=== PATIENT | male | born 1950 | race Asian ===

== ENCOUNTER 2017-04-21 09:43 | Emergency (ER) | payer MEDICARE ==
[~2017-04-21] VITALS: Ht 167.6 cm; Wt 74.2 kg
[~2017-04-21 09:43] MED LIST: ASPI-621 PO; ATEN25TA PO; HYDR12.58 PO; LEVO25TA4 PO; LISI-170 PO; LISI5TAB7 PO
[2017-04-21 09:51] VITALS: BP 202/98
== END 2017-04-21 12:20 | disposition home or self-care (01) ==
LOC: ED 12:00
DX: R42 Dizziness and giddiness (principal); J01.10 Acute frontal sinusitis, unspecified; J01.00 Acute maxillary sinusitis, unspecified; I10 Essential (primary) hypertension
CPT/HCPCS: 36415; 80047; 93005; 99285

== ENCOUNTER 2017-07-10 13:34 | Inpatient (IN) | payer MEDICARE ==
[~2017-07-10] VITALS: Ht 170.2 cm; Wt 71.8 kg
[~2017-07-10 13:34] MED LIST changes: +LISI-167 PO
[2017-07-10] MEDS ORDERED: SODIUM CHLORIDE FLUSH 10ML SYR IVF ONE (15:00)
[2017-07-10 15:06] LABS: MEAN CORPUSCULAR HEMOGLOBIN 31.2 pg (27.5-34.5); MEAN CORPUSCULAR VOLUME 91.7 fL (81-97)
[2017-07-10 15:07] LABS: BASOPHILS # (AUTO) 0.03 x10^3/uL (0-0.1); BASOPHILS % (AUTO) 0 % (0-1); EOSINOPHILS # (AUTO) 0.02 x10^3/uL (0-0.4); EOSINOPHILS % (AUTO) 0 % (1-7); LYMPHOCYTES # (AUTO) 1.39 x10^3/uL (1-3.4); LYMPHOCYTES % (AUTO) 16 % (22-44); MD NO; MEAN PLATELET VOLUME 7.4 fL (7.4-10.4); MONOCYTES # (AUTO) 0.69 x10^3/uL (0.2-0.8); MONOCYTES % (AUTO) 8 % (2-9); NEUTROPHILS # (AUTO) 6.84 x10^3/uL (1.8-6.8); NEUTROPHILS % (AUTO) 76 % (42-75); PLATELET COUNT 331 x10^3/uL (130-400); RED CELL DISTRIBUTION WIDTH 13.9 % (9.4-14.8)
[2017-07-10 15:19] LABS: ALANINE AMINOTRANSFERASE 31 U/L (12-78); ALBUMIN 3.6 g/dL (3.4-5.0); ANION GAP 6 mmol/L (5-15); CALCIUM 8.4 mg/dL (8.5-10.1); CHLORIDE 96 mmol/L (98-107); CREATININE 1.03 mg/dL (0.7-1.3)
[2017-07-10 15:23] LABS: ALKALINE PHOSPHATASE 48 U/L (45-117); BILIRUBIN,TOTAL 0.5 mg/dL (0.2-1.0); TOTAL PROTEIN 7.8 g/dL (6.4-8.2); TROPONIN I < 0.015 ng/mL (0.000-0.045)
[2017-07-10] MEDS ORDERED: CEFAZOLIN PMX 1GM/50ML 50 ML IVPB ONE (17:30)
[2017-07-10] MEDS ORDERED: ZOLPIDEM 5MG TABLET PO PRN (17:30)
[2017-07-10 17:49] LABS: THYROID STIMULATING HORMONE 1.12 mIU/L (0.358-3.740)
[2017-07-10] MEDS: LISINOPRIL 20 MG TABLET PO SCH ×2 (21:00→21:42)
[2017-07-10] MEDS: SODIUM CHLORIDE FLUSH 10ML SYR IVF SCH (21:00)
[2017-07-10 21:45] VITALS: BP 142/85
[2017-07-10] MEDS: SODIUM CHLORIDE 0.9% 1,000 ML IV SCH (22:20)
[2017-07-10] MEDS ORDERED: LEVO50TA5 PO (22:26)
[2017-07-11 03:28] VITALS: BP 147/84
[2017-07-11] MEDS: LEVOTHYROXINE 50 MCG TABLET PO SCH (05:26)
[2017-07-11 05:39] LABS: ANION GAP 6 mmol/L (5-15); CALCIUM 8.2 mg/dL (8.5-10.1); CHLORIDE 99 mmol/L (98-107); CREATININE 0.96 mg/dL (0.7-1.3)
[2017-07-11] MEDS: SODIUM CHLORIDE 0.9% 1,000 ML IV SCH ×3 (06:38→16:00)
[2017-07-11 08:00] VITALS: BP 154/86
[2017-07-11] MEDS: LISINOPRIL 20 MG TABLET PO SCH ×2 (09:18→21:04)
[2017-07-11] MEDS: SODIUM CHLORIDE FLUSH 10ML SYR IVF SCH ×2 (09:20→21:05)
[2017-07-11] MEDS ORDERED: MIDAZOLAM 1 MG/ML, 5ML ONE (11:42)
[2017-07-11] MEDS ORDERED: LIDOCAINE 2%, 20ML ONE (11:42)
[2017-07-11] MEDS ORDERED: FENTANYL PF 100 MCG/2ML ONE (11:42)
[2017-07-11] MEDS ORDERED: CEFAZOLIN 1,000 MG ONE (11:42)
[2017-07-11] MEDS ORDERED: CEFAZOLIN PMX 1GM/50ML 50 ML ONE (11:42)
[2017-07-11] MEDS ORDERED: DIPHENHYDRAMINE 50 MG/ML, 1ML ONE (12:06)
[2017-07-11] MEDS: ACETAMINOPHEN 325 MG TABLET PO PRN (15:49)
[2017-07-11 20:56] VITALS: BP 145/85
[2017-07-11] MEDS: CEFAZOLIN PMX 1GM/50ML 50 ML IVPB SCH (21:04)
[2017-07-12] MEDS: ACETAMINOPHEN 325 MG TABLET PO PRN (00:14)
[2017-07-12] MEDS: SODIUM CHLORIDE 0.9% 1,000 ML IV SCH ×3 (02:00→04:00)
[2017-07-12 03:42] VITALS: BP_SYST 134; BP_SYST 144; BP_DIAS 81; BP_DIAS 85
[2017-07-12] MEDS: CEFAZOLIN PMX 1GM/50ML 50 ML IVPB SCH (04:10)
[2017-07-12] MEDS: LEVOTHYROXINE 50 MCG TABLET PO SCH (04:10)
[2017-07-12] MEDS ORDERED: LISI-167 PO (08:17)
[2017-07-12] MEDS ORDERED: METO25TA35 PO (08:17)
[2017-07-12] MEDS ORDERED: ACET325T14 PO (08:17)
[2017-07-12] MEDS ORDERED: METOPROLOL TARTRATE 25 MG TABLET PO SCH (08:30)
[2017-07-12] MEDS: LISINOPRIL 20 MG TABLET PO SCH (08:42)
[2017-07-12] MEDS: SODIUM CHLORIDE FLUSH 10ML SYR IVF SCH (08:43)
[2017-07-12] MEDS ORDERED: PNEUMOCOCCAL 23 VACCINE IM-VACC ONE (11:00)
== END 2017-07-12 11:20 | disposition home or self-care (01) | DRG 243 ==
LOC: ED 14:39 → EDIP 17:05 → 5SO 18:25
PROVIDERS: ADMIT Internal Medicine Cardiovascular Disease; ATTEND Internal Medicine Cardiovascular Disease
PROC: 02H63JZ Insertion of Pacemaker Lead into Right Atrium, Percutaneous Approach (ICD-10-PCS; principal; 2017-07-11)
PROC: 0JH606Z Insertion of Pacemaker, Dual Chamber into Chest Subcutaneous Tissue and Fascia, Open Approach (ICD-10-PCS; 2017-07-11)
PROC: 02HK3JZ Insertion of Pacemaker Lead into Right Ventricle, Percutaneous Approach (ICD-10-PCS; 2017-07-11)
DX: I49.5 Sick sinus syndrome (principal); E87.1 Hypo-osmolality and hyponatremia; I48.92 Unspecified atrial flutter; I44.1 Atrioventricular block, second degree; E03.9 Hypothyroidism, unspecified; I10 Essential (primary) hypertension; R55 Syncope and collapse; M54.9 Dorsalgia, unspecified; Z87.891 Personal history of nicotine dependence
CPT/HCPCS: 33208; 36415; 71045; 80048; 80053; 83735; 84443; 84484; 85025; 93005; 93306; 99156; 99157; 99285; C1779; C1785; C1892; J0690; J2250; J3010; J3490; J1200; J7030

== ENCOUNTER 2017-07-15 09:13 | Emergency (ER) | payer MEDICARE ==
[~2017-07-15] VITALS: Ht 167.6 cm; Wt 72.6 kg
[~2017-07-15 09:13] MED LIST changes: +ACET325T14 PO; +LEVO50TA5 PO; +METO25TA35 PO
[2017-07-15 10:09] LABS: BASOPHILS # (AUTO) 0.01 x10^3/uL (0-0.1); BASOPHILS % (AUTO) 0 % (0-1); EOSINOPHILS # (AUTO) 0.02 x10^3/uL (0-0.4); EOSINOPHILS % (AUTO) 0 % (1-7); LYMPHOCYTES # (AUTO) 1.11 x10^3/uL (1-3.4); LYMPHOCYTES % (AUTO) 11 % (22-44); MD NO; MEAN CORPUSCULAR HEMOGLOBIN 31.4 pg (27.5-34.5); MEAN CORPUSCULAR HGB CONC 34.3 g/dL (33.2-36.2); MEAN CORPUSCULAR VOLUME 91.4 fL (81-97); MEAN PLATELET VOLUME 7.6 fL (7.4-10.4); MONOCYTES # (AUTO) 0.82 x10^3/uL (0.2-0.8); MONOCYTES % (AUTO) 8 % (2-9); NEUTROPHILS # (AUTO) 8.49 x10^3/uL (1.8-6.8); NEUTROPHILS % (AUTO) 81 % (42-75); PLATELET COUNT 296 x10^3/uL (130-400); RED BLOOD COUNT 4.91 x10^6/uL (4.38-5.82); RED CELL DISTRIBUTION WIDTH 14.1 % (9.4-14.8)
[2017-07-15 10:15] LABS: INTERNATIONAL NORMALIZED RATIO 0.96 (0.93-1.1)
[2017-07-15 10:18] LABS: ALBUMIN 3.4 g/dL (3.4-5.0); ANION GAP 8 mmol/L (5-15); CALCIUM 8.4 mg/dL (8.5-10.1); CHLORIDE 98 mmol/L (98-107)
[2017-07-15 10:22] LABS: TROPONIN I < 0.015 ng/mL (0.000-0.045)
[2017-07-15 11:33] VITALS: BP 166/94
== END 2017-07-15 11:35 | disposition home or self-care (01) ==
LOC: ED 11:30
DX: H93.11 Tinnitus, right ear (principal); R06.00 Dyspnea, unspecified; I10 Essential (primary) hypertension; Z95.0 Presence of cardiac pacemaker; R79.1 Abnormal coagulation profile
CPT/HCPCS: 36415; 71045; 80048; 82040; 84484; 85025; 85610; 85730; 93005; 99285

== ENCOUNTER 2017-08-02 13:21 | Inpatient (IN) | payer MEDICARE ==
[~2017-08-02] VITALS: Ht 170.2 cm; Wt 70.4 kg
[2017-08-02 14:50] LABS: BASOPHILS # (AUTO) 0.04 x10^3/uL (0-0.1); BASOPHILS % (AUTO) 0 % (0-1); EOSINOPHILS # (AUTO) 0.02 x10^3/uL (0-0.4); EOSINOPHILS % (AUTO) 0 % (1-7); LYMPHOCYTES # (AUTO) 1.96 x10^3/uL (1-3.4); LYMPHOCYTES % (AUTO) 18 % (22-44); MD NO; MEAN CORPUSCULAR HEMOGLOBIN 31.1 pg (27.5-34.5); MEAN CORPUSCULAR HGB CONC 34.2 g/dL (33.2-36.2); MEAN CORPUSCULAR VOLUME 91.1 fL (81-97); MEAN PLATELET VOLUME 7.3 fL (7.4-10.4); MONOCYTES # (AUTO) 1.21 x10^3/uL (0.2-0.8); MONOCYTES % (AUTO) 11 % (2-9); NEUTROPHILS # (AUTO) 7.44 x10^3/uL (1.8-6.8); NEUTROPHILS % (AUTO) 70 % (42-75); PLATELET COUNT 372 x10^3/uL (130-400); RED BLOOD COUNT 5.29 x10^6/uL (4.38-5.82); RED CELL DISTRIBUTION WIDTH 14.1 % (9.4-14.8)
[2017-08-02 15:00] LABS: ANION GAP 9 mmol/L (5-15); CALCIUM 8.9 mg/dL (8.5-10.1); CHLORIDE 85 mmol/L (98-107)
[2017-08-02 15:21] LABS: ALANINE AMINOTRANSFERASE 31 U/L (12-78); BILIRUBIN,TOTAL 0.6 mg/dL (0.2-1.0); CREATININE 1.44 mg/dL (0.7-1.3)
[2017-08-02 15:22] LABS: ALKALINE PHOSPHATASE 66 U/L (45-117); TOTAL PROTEIN 8.7 g/dL (6.4-8.2)
[2017-08-02] MEDS ORDERED: SODIUM CHLORIDE 0.9% 1,000 ML IV ONE (15:28)
[2017-08-02] MEDS ORDERED: SODIUM CHLORIDE 0.9% 1,000ML IVBOLUS ONE (15:30)
[2017-08-02] MEDS ORDERED: SODIUM CHLORIDE FLUSH 10ML SYR IVF ONE (15:30)
[2017-08-02] MEDS ORDERED: SODIUM CHLORIDE 0.9% 1,000 ML IV SCH (15:49)
[2017-08-02] MEDS ORDERED: LABETALOL 5MG/ML, 20ML IVPush PRN (16:00)
[2017-08-02] MEDS ORDERED: ONDANSETRON ODT 4 MG PO PRN (16:00)
[2017-08-02] MEDS ORDERED: ACETAMINOPHEN 325 MG TABLET PO PRN (16:00)
[2017-08-02] MEDS ORDERED: HYDR12.53 PO (16:01)
[2017-08-02] MEDS ORDERED: SULF1TAB23 PO (16:01)
[2017-08-02] MEDS ORDERED: CHLO25TA PO (16:13)
[2017-08-02 16:46] LABS: MICROSCOPIC AUTO
[2017-08-02 16:47] LABS: CULTURE INDICATED? NO
[2017-08-02 16:49] LABS: CHLORIDE,URINE RANDOM 91 mmol/L; POTASSIUM,URINE RANDOM 23 mmol/L; SODIUM,URINE RANDOM 91 mmol/L
[2017-08-02 17:03] LABS: CREATININE,URINE RANDOM 72.9 mg/dL
[2017-08-02] MEDS ORDERED: METOPROLOL TARTRATE 50 MG TABLET PO SCH (18:00)
[2017-08-02 18:17] VITALS: BP 133/81
[2017-08-02] MEDS: LISINOPRIL 10 MG TABLET PO SCH (19:45)
[2017-08-02] MEDS: SULFAMETH./TRIMETHOPRIM SS 400MG/80MG TABLET PO SCH (19:46)
[2017-08-02] MEDS: HEPARIN 5,000 UNITS/ML, 1ML SQ SCH (19:58)
[2017-08-02 20:05] VITALS: BP_SYST 130; BP_SYST 133; BP_DIAS 74; BP_DIAS 81
[2017-08-02] MEDS ORDERED: SULFAMETH./TRIMETHOPRIM DS 800MG/160MG TABLET PO SCH (21:00)
[2017-08-02] MEDS ORDERED: METOPROLOL TARTRATE 25 MG TABLET PO SCH (21:00)
[2017-08-03 01:15] VITALS: BP 123/70
[2017-08-03 01:17] VITALS: BP 123/70
[2017-08-03 04:21] LABS: BASOPHILS # (AUTO) 0.04 x10^3/uL (0-0.1); BASOPHILS % (AUTO) 0 % (0-1); EOSINOPHILS # (AUTO) 0.03 x10^3/uL (0-0.4); EOSINOPHILS % (AUTO) 0 % (1-7); LYMPHOCYTES # (AUTO) 1.85 x10^3/uL (1-3.4); LYMPHOCYTES % (AUTO) 18 % (22-44); MD NO; MEAN CORPUSCULAR HEMOGLOBIN 31.2 pg (27.5-34.5); MEAN CORPUSCULAR HGB CONC 34.1 g/dL (33.2-36.2); MEAN CORPUSCULAR VOLUME 91.5 fL (81-97); MEAN PLATELET VOLUME 7.4 fL (7.4-10.4); MONOCYTES # (AUTO) 1.12 x10^3/uL (0.2-0.8); MONOCYTES % (AUTO) 11 % (2-9); NEUTROPHILS # (AUTO) 7.08 x10^3/uL (1.8-6.8); NEUTROPHILS % (AUTO) 70 % (42-75); PLATELET COUNT 347 x10^3/uL (130-400); RED BLOOD COUNT 5.07 x10^6/uL (4.38-5.82); RED CELL DISTRIBUTION WIDTH 13.9 % (9.4-14.8)
[2017-08-03 04:32] LABS: ALBUMIN 3.5 g/dL (3.4-5.0); ANION GAP 10 mmol/L (5-15); CALCIUM 8.2 mg/dL (8.5-10.1); CHLORIDE 91 mmol/L (98-107)
[2017-08-03 04:36] LABS: ALANINE AMINOTRANSFERASE 30 U/L (12-78); ALKALINE PHOSPHATASE 57 U/L (45-117); BILIRUBIN,TOTAL 0.9 mg/dL (0.2-1.0); CHOL/HDL RATIO 3.6; CHOLESTEROL, TOTAL 171 mg/dL (140-239); CREATININE 1.22 mg/dL (0.7-1.3); HDL CHOL % 27 % (26-37); HDL CHOLESTEROL (DIRECT) 47 mg/dL (40-60); LDL CHOLESTEROL,CALCULATED 95 mg/dL (54-169); TOTAL PROTEIN 7.7 g/dL (6.4-8.2); TRIGLYCERIDES 144 mg/dL (50-200); VLDL CHOLESTEROL 29 mg/dL (0-25)
[2017-08-03] MEDS: HEPARIN 5,000 UNITS/ML, 1ML SQ SCH ×3 (05:00→22:54)
[2017-08-03] MEDS ORDERED: FUROSEMIDE 20 MG/2 ML IV ONE (08:00)
[2017-08-03] MEDS: LEVOTHYROXINE 50 MCG TABLET PO SCH (08:05)
[2017-08-03 08:46] VITALS: BP 144/76
[2017-08-03] MEDS: LISINOPRIL 10 MG TABLET PO SCH (09:22)
[2017-08-03] MEDS: SULFAMETH./TRIMETHOPRIM SS 400MG/80MG TABLET PO SCH ×2 (09:22→19:49)
[2017-08-03] MEDS: METOPROLOL TARTRATE 50 MG TABLET PO SCH ×2 (09:27→22:54)
[2017-08-03 14:36] VITALS: BP 109/68
[2017-08-03] MEDS ORDERED: SODIUM CHLORIDE 0.9% 1,000 ML IV SCH (15:49)
[2017-08-03 19:38] VITALS: BP 113/69
[2017-08-03 22:52] VITALS: BP 113/70
[2017-08-03] MEDS: LISINOPRIL 20 MG TABLET PO SCH (22:54)
[2017-08-04 03:36] VITALS: BP 113/66
[2017-08-04 04:24] VITALS: BP 128/80
[2017-08-04 04:31] LABS: BASOPHILS # (AUTO) 0.03 x10^3/uL (0-0.1); BASOPHILS % (AUTO) 0 % (0-1); EOSINOPHILS # (AUTO) 0.06 x10^3/uL (0-0.4); EOSINOPHILS % (AUTO) 1 % (1-7); LYMPHOCYTES # (AUTO) 2.44 x10^3/uL (1-3.4); LYMPHOCYTES % (AUTO) 27 % (22-44); MD NO; MEAN CORPUSCULAR HEMOGLOBIN 30.4 pg (27.5-34.5); MEAN CORPUSCULAR HGB CONC 33.5 g/dL (33.2-36.2); MEAN CORPUSCULAR VOLUME 90.8 fL (81-97); MEAN PLATELET VOLUME 7.3 fL (7.4-10.4); MONOCYTES # (AUTO) 1.28 x10^3/uL (0.2-0.8); MONOCYTES % (AUTO) 14 % (2-9); NEUTROPHILS # (AUTO) 5.13 x10^3/uL (1.8-6.8); NEUTROPHILS % (AUTO) 57 % (42-75); PLATELET COUNT 333 x10^3/uL (130-400); RED BLOOD COUNT 4.93 x10^6/uL (4.38-5.82); RED CELL DISTRIBUTION WIDTH 13.6 % (9.4-14.8)
[2017-08-04 04:42] LABS: ALBUMIN 3.7 g/dL (3.4-5.0); ANION GAP 8 mmol/L (5-15); CALCIUM 8.7 mg/dL (8.5-10.1); CHLORIDE 91 mmol/L (98-107)
[2017-08-04 04:46] LABS: ALANINE AMINOTRANSFERASE 30 U/L (12-78); ALKALINE PHOSPHATASE 58 U/L (45-117); BILIRUBIN,TOTAL 0.8 mg/dL (0.2-1.0); CREATININE 1.69 mg/dL (0.7-1.3); TOTAL PROTEIN 7.7 g/dL (6.4-8.2)
[2017-08-04] MEDS: HEPARIN 5,000 UNITS/ML, 1ML SQ SCH ×2 (06:40→17:02)
[2017-08-04] MEDS: SULFAMETH./TRIMETHOPRIM SS 400MG/80MG TABLET PO SCH ×2 (08:12→20:28)
[2017-08-04] MEDS: LEVOTHYROXINE 50 MCG TABLET PO SCH (08:12)
[2017-08-04] MEDS ORDERED: FUROSEMIDE 20 MG/2 ML IV ONE (08:30)
[2017-08-04 08:31] VITALS: BP_SYST 105; BP_SYST 116; BP_DIAS 69; BP_DIAS 70
[2017-08-04] MEDS: METOPROLOL TARTRATE 50 MG TABLET PO SCH ×2 (10:31→20:28)
[2017-08-04] MEDS: LISINOPRIL 20 MG TABLET PO SCH ×2 (10:34→20:28)
[2017-08-04 14:45] VITALS: BP 127/75
[2017-08-04 19:05] VITALS: BP 129/71
[2017-08-05 00:14] VITALS: BP 157/84
[2017-08-05] MEDS: HEPARIN 5,000 UNITS/ML, 1ML SQ SCH ×2 (01:10→08:07)
[2017-08-05] MEDS: LEVOTHYROXINE 50 MCG TABLET PO SCH (06:44)
[2017-08-05 07:14] LABS: BASOPHILS # (AUTO) 0.02 x10^3/uL (0-0.1); BASOPHILS % (AUTO) 0 % (0-1); EOSINOPHILS # (AUTO) 0.01 x10^3/uL (0-0.4); EOSINOPHILS % (AUTO) 0 % (1-7); LYMPHOCYTES # (AUTO) 1.45 x10^3/uL (1-3.4); LYMPHOCYTES % (AUTO) 19 % (22-44); MD NO; MEAN CORPUSCULAR HEMOGLOBIN 31.1 pg (27.5-34.5); MEAN CORPUSCULAR HGB CONC 34.5 g/dL (33.2-36.2); MEAN PLATELET VOLUME 7.2 fL (7.4-10.4); MONOCYTES # (AUTO) 0.96 x10^3/uL (0.2-0.8); MONOCYTES % (AUTO) 13 % (2-9); NEUTROPHILS # (AUTO) 5.14 x10^3/uL (1.8-6.8); NEUTROPHILS % (AUTO) 68 % (42-75); PLATELET COUNT 322 x10^3/uL (130-400); RED BLOOD COUNT 5.06 x10^6/uL (4.38-5.82); RED CELL DISTRIBUTION WIDTH 13.8 % (9.4-14.8)
[2017-08-05 07:24] LABS: ANION GAP 9 mmol/L (5-15); CALCIUM 9.3 mg/dL (8.5-10.1); CHLORIDE 91 mmol/L (98-107); CREATININE 1.15 mg/dL (0.7-1.3)
[2017-08-05] MEDS: METOPROLOL TARTRATE 50 MG TABLET PO SCH (08:07)
[2017-08-05] MEDS: LISINOPRIL 20 MG TABLET PO SCH (08:07)
[2017-08-05] MEDS: SULFAMETH./TRIMETHOPRIM SS 400MG/80MG TABLET PO SCH (08:07)
[2017-08-05 08:15] VITALS: BP 172/84
[2017-08-05 09:16] VITALS: BP_SYST 143; BP_SYST 145; BP_DIAS 81; BP_DIAS 87
[2017-08-05] MEDS ORDERED: CEPHALEXIN 500 MG CAPSULE PO SCH (11:00)
[2017-08-05] MEDS ORDERED: CEPH-376 PO (12:38)
[2017-08-05] MEDS ORDERED: LACT1CAP35 PO (12:38)
[2017-08-05] MEDS ORDERED: LISI-170 PO (12:38)
== END 2017-08-05 14:35 | disposition home or self-care (01) | DRG 682 ==
LOC: ED 15:52 → EDIP 16:06 → 3NW 18:00
PROVIDERS: ADMIT Hospitalist; ATTEND Hospitalist
DX: N17.0 Acute kidney failure with tubular necrosis (principal); K85.30 Drug induced acute pancreatitis without necrosis or infection; E87.1 Hypo-osmolality and hyponatremia; I44.1 Atrioventricular block, second degree; I11.9 Hypertensive heart disease without heart failure; E03.9 Hypothyroidism, unspecified; K76.0 Fatty (change of) liver, not elsewhere classified; K80.20 Calculus of gallbladder without cholecystitis without obstruction; T37.0X5A Adverse effect of sulfonamides, initial encounter; Z95.0 Presence of cardiac pacemaker; Z82.49 Family history of ischemic heart disease and other diseases of the circulatory system; Z80.9 Family history of malignant neoplasm, unspecified; Z84.1 Family history of disorders of kidney and ureter; Y92.89 Other specified places as the place of occurrence of the external cause
CPT/HCPCS: 36415; 71045; 76700; 80048; 80053; 80061; 81001; 82436; 82570; 83690; 83935; 84133; 84295; 84300; 84443; 85025; 87040; 93005; 99291; J1644; J1940; J7030

== ENCOUNTER 2018-10-27 08:45 | Emergency (ER) | payer MEDICARE ==
[~2018-10-27] VITALS: Ht 167.6 cm; Wt 75.7 kg
[~2018-10-27 08:45] MED LIST changes: -ASPI-621 PO; +ASPI81TA45 PO; +CEPH-376 PO; +CHLO25TA PO; +HYDR12.517 PO; -HYDR12.58 PO; +HYDROCHLOROTH12.5 MG PO; +LACT1CAP35 PO; +SULF1TAB23 PO
[2018-10-27 09:35] LABS: BASOPHILS # (AUTO) 0.06 x10^3/uL (0-0.1); BASOPHILS % (AUTO) 1 % (0-1); EOSINOPHILS # (AUTO) 0.15 x10^3/uL (0-0.4); EOSINOPHILS % (AUTO) 1 % (1-7); LYMPHOCYTES # (AUTO) 1.27 x10^3/uL (1-3.4); LYMPHOCYTES % (AUTO) 12 % (22-44); MD NO; MEAN CORPUSCULAR HGB CONC 32.6 g/dL (33.2-36.2); MEAN CORPUSCULAR VOLUME 91.8 fL (81-97); MEAN PLATELET VOLUME 7.7 fL (7.4-10.4); MONOCYTES # (AUTO) 1.25 x10^3/uL (0.2-0.8); MONOCYTES % (AUTO) 11 % (2-9); NEUTROPHILS # (AUTO) 8.25 x10^3/uL (1.8-6.8); NEUTROPHILS % (AUTO) 75 % (42-75); PLATELET COUNT 316 x10^3/uL (130-400); RED BLOOD COUNT 4.87 x10^6/uL (4.38-5.82); RED CELL DISTRIBUTION WIDTH 14.8 % (9.4-14.8)
[2018-10-27 09:46] LABS: ALANINE AMINOTRANSFERASE 22 U/L (12-78); ALBUMIN 3.5 g/dL (3.4-5.0); ANION GAP 7 mmol/L (5-15); CALCIUM 8.8 mg/dL (8.5-10.1); CHLORIDE 103 mmol/L (98-107); CREATININE 1.21 mg/dL (0.7-1.3)
[2018-10-27 09:48] LABS: ALKALINE PHOSPHATASE 61 U/L (45-117); BILIRUBIN,TOTAL 0.5 mg/dL (0.2-1.0); TOTAL PROTEIN 7.9 g/dL (6.4-8.2)
--- NOTE | 2018-10-27 09:58 | NUR ---
Report from IRINA Delcid. Patient resting in [facility]. No needs.
[2018-10-27 10:39] VITALS: BP 135/74
--- NOTE | 2018-10-27 10:49 | NUR ---
Patient/Caregiver given discharge instructions and they have confirmed that they understand the instructions. Patient ambulatory with steady gait.
== END 2018-10-27 10:51 | disposition home or self-care (01) ==
LOC: ED 09:46
DX: K60.0 Acute anal fissure (principal); R19.7 Diarrhea, unspecified; I10 Essential (primary) hypertension; Z87.891 Personal history of nicotine dependence
CPT/HCPCS: 36415; 80053; 85025; 99283

== ENCOUNTER 2018-11-01 17:25 | Emergency (ER) | payer MEDICARE ==
[~2018-11-01] VITALS: Ht 167.6 cm; Wt 76.0 kg
[2018-11-01 18:43] LABS: BASOPHILS # (AUTO) 0.03 x10^3/uL (0-0.1); BASOPHILS % (AUTO) 0 % (0-1); EOSINOPHILS # (AUTO) 0.27 x10^3/uL (0-0.4); EOSINOPHILS % (AUTO) 2 % (1-7); LYMPHOCYTES # (AUTO) 2.34 x10^3/uL (1-3.4); LYMPHOCYTES % (AUTO) 17 % (22-44); MD NO; MEAN CORPUSCULAR HEMOGLOBIN 31.2 pg (27.5-34.5); MEAN CORPUSCULAR HGB CONC 33.3 g/dL (33.2-36.2); MEAN CORPUSCULAR VOLUME 93.8 fL (81-97); MEAN PLATELET VOLUME 7.6 fL (7.4-10.4); MONOCYTES # (AUTO) 1.51 x10^3/uL (0.2-0.8); MONOCYTES % (AUTO) 11 % (2-9); NEUTROPHILS # (AUTO) 9.58 x10^3/uL (1.8-6.8); NEUTROPHILS % (AUTO) 70 % (42-75); PLATELET COUNT 334 x10^3/uL (130-400); RED BLOOD COUNT 4.66 x10^6/uL (4.38-5.82); RED CELL DISTRIBUTION WIDTH 14.6 % (9.4-14.8)
[2018-11-01 18:51] LABS: ALBUMIN 3.7 g/dL (3.4-5.0); ANION GAP 6 mmol/L (5-15); CALCIUM 8.8 mg/dL (8.5-10.1); CHLORIDE 103 mmol/L (98-107); CREATININE 1.14 mg/dL (0.7-1.3)
--- NOTE | 2018-11-01 18:59 | NUR ---
CUP SETTER LOCKSTITCH: PT TO ROOM FROM [facility]
[2018-11-01 19:09] VITALS: BP 165/95
--- NOTE | 2018-11-01 19:09 | NUR ---
FIRST CONTACT WITH PT. PT STATES "I WAS HERE LAST THURSDAY WITH DIARRHEA. NOW THERE IS BLOOD. MY PCP COULDN'T ACCOMODATE ME, SO I'M HERE. THEY SAID I HAVE A FISSURE. IT'S GETTING WORSE. BLEEDING STILL." PT DENIES N/V/PAIN AT THIS TIME. PT C/O DIFFICULTY SWALLOWING WELL. PT'S AOX4. RESPS EVEN AND UNLABORED. BP/SPO2 MONITORS IN PLACE. CALL LIGHT WITHIN REACH.
[2018-11-01] MEDS ORDERED: AMLO-150 PO (19:12)
--- NOTE | 2018-11-01 20:04 | NUR ---
PT AMB TO BR AND BACK TO ROOM WITH SETADY GAIT.
--- NOTE | 2018-11-01 20:09 | NUR ---
PT WOULD LIKE TO TAKE HOME MEDS NOW. OMAR OK'D.
--- NOTE | 2018-11-01 20:54 | NUR ---
Patient given discharge instructions and they have confirmed that they understand the instructions. Patient ambulatory with steady gait. no acute distress at dc.
== END 2018-11-01 20:54 | disposition home or self-care (01) ==
LOC: ED 20:45
DX: K64.5 Perianal venous thrombosis (principal); K60.0 Acute anal fissure; I10 Essential (primary) hypertension
CPT/HCPCS: 36415; 80048; 82040; 85025; 99284

== ENCOUNTER 2018-11-04 18:03 | Emergency (ER) | payer MEDICARE ==
[~2018-11-04] VITALS: Ht 170.2 cm; Wt 74.8 kg
[~2018-11-04 18:03] MED LIST changes: +AMLO-150 PO
[2018-11-04 18:14] VITALS: BP 175/98
--- NOTE | 2018-11-04 18:36 | NUR ---
PATIENT SENT TO LOBBY AFTER TRIAGE, PATIENT SIGNED AMA PAPERS WITH ADMITTING, NEVER SAW PHYSICIAN.
[2018-11-10] MEDS ORDERED: METO25TA35 PO (20:59)
[2018-11-10] MEDS ORDERED: AMLO10TA8 PO (21:00)
[2018-11-10] MEDS ORDERED: MULT-516 PO (21:01)
[2018-11-10] MEDS ORDERED: LACT1CAP35 PO (21:01)
[2018-11-10] MEDS ORDERED: CHOL200074 PO (21:01)
== END 2018-11-04 18:39 | disposition left against medical advice (07) ==
LOC: ED 18:33
DX: T18.120A Food in esophagus causing compression of trachea, initial encounter (principal); Z53.21 Procedure and treatment not carried out due to patient leaving prior to being seen by health care provider

== ENCOUNTER 2018-11-04 19:32 | Emergency (ER) | payer MEDICARE ==
[~2018-11-04] VITALS: Ht 167.6 cm; Wt 74.2 kg
[2018-11-04 21:41] LABS: MEAN CORPUSCULAR HEMOGLOBIN 30.1 pg (27.5-34.5); MEAN CORPUSCULAR HGB CONC 32.6 g/dL (33.2-36.2); MEAN CORPUSCULAR VOLUME 92.3 fL (81-97); MEAN PLATELET VOLUME 7.2 fL (7.4-10.4); PLATELET COUNT 374 x10^3/uL (130-400); RED CELL DISTRIBUTION WIDTH 14.7 % (9.4-14.8)
[2018-11-04 21:52] LABS: PROTHROMBIN TIME 10.5 Seconds (9.6-11.5)
[2018-11-04 21:54] LABS: ALANINE AMINOTRANSFERASE 20 U/L (12-78); ALBUMIN 3.3 g/dL (3.4-5.0); ANION GAP 5 mmol/L (5-15); CALCIUM 8.7 mg/dL (8.5-10.1); CHLORIDE 100 mmol/L (98-107)
[2018-11-04 21:56] LABS: BASOPHILS # (AUTO) 0.02 x10^3/uL (0-0.1); BASOPHILS % (AUTO) 0 % (0-1); EOSINOPHILS # (AUTO) 0.24 x10^3/uL (0-0.4); EOSINOPHILS % (AUTO) 2 % (1-7); LYMPHOCYTES % (AUTO) 12 % (22-44); MD SCAN; MONOCYTES # (AUTO) 1.49 x10^3/uL (0.2-0.8); MONOCYTES % (AUTO) 9 % (2-9); NEUTROPHILS # (AUTO) 12.45 x10^3/uL (1.8-6.8); NEUTROPHILS % (AUTO) 77 % (42-75)
[2018-11-04 21:57] LABS: ALKALINE PHOSPHATASE 62 U/L (45-117); BILIRUBIN,TOTAL 0.5 mg/dL (0.2-1.0); CREATININE 1.06 mg/dL (0.7-1.3)
--- NOTE | 2018-11-04 22:52 | NUR ---
PT SAYS THROAT FEELS SIMILAR TO WHEN HE WAS HAVING THYROID ISSUES. MD NOTIFIED OF THIS AND LABS ADDED. PT RESTING WITH NO COMPLAINTS. CALL LIGHT IN REACH. VSS.
[2018-11-04 22:54] VITALS: BP 146/84
--- NOTE | 2018-11-05 00:05 | NUR ---
Patient given discharge instructions and they have confirmed that they understand the instructions. Patient ambulatory with steady gait.
== END 2018-11-05 00:08 | disposition home or self-care (01) ==
LOC: ED 21:37
DX: K92.1 Melena (principal); R13.14 Dysphagia, pharyngoesophageal phase; K92.2 Gastrointestinal hemorrhage, unspecified; I10 Essential (primary) hypertension; M10.9 Gout, unspecified; Z95.0 Presence of cardiac pacemaker; Z87.891 Personal history of nicotine dependence
CPT/HCPCS: 36415; 74220; 80053; 84443; 85025; 85610; 85730; 99284

== ENCOUNTER 2018-11-10 16:19 | Inpatient (IN) | payer MEDICARE ==
[~2018-11-10] VITALS: Ht 168.9 cm; Wt 75.5 kg
[2018-11-13 14:07] VITALS: BP 153/79
== END 2018-11-13 16:04 | disposition home or self-care (01) | DRG 871 ==
LOC: ED 18:15 → EDIP 20:07 → 3NE 21:15
PROVIDERS: ADMIT Internal Medicine; ATTEND Internal Medicine
PROC: 0DBK8ZX Excision of Ascending Colon, Via Natural or Artificial Opening Endoscopic, Diagnostic (ICD-10-PCS; principal; 2018-11-12)
PROC: 0DBL8ZX Excision of Transverse Colon, Via Natural or Artificial Opening Endoscopic, Diagnostic (ICD-10-PCS; 2018-11-12)
PROC: 0DBN8ZX Excision of Sigmoid Colon, Via Natural or Artificial Opening Endoscopic, Diagnostic (ICD-10-PCS; 2018-11-12)
PROC: 0DBP8ZX Excision of Rectum, Via Natural or Artificial Opening Endoscopic, Diagnostic (ICD-10-PCS; 2018-11-12)
PROC: 0DBB8ZX Excision of Ileum, Via Natural or Artificial Opening Endoscopic, Diagnostic (ICD-10-PCS; 2018-11-12)
PROC: 0DBM8ZX Excision of Descending Colon, Via Natural or Artificial Opening Endoscopic, Diagnostic (ICD-10-PCS; 2018-11-12)
DX: A41.9 Sepsis, unspecified organism (principal); N17.0 Acute kidney failure with tubular necrosis; E87.1 Hypo-osmolality and hyponatremia; K51.911 Ulcerative colitis, unspecified with rectal bleeding; I10 Essential (primary) hypertension; E03.9 Hypothyroidism, unspecified; E83.39 Other disorders of phosphorus metabolism; E86.0 Dehydration; K64.4 Residual hemorrhoidal skin tags; R13.10 Dysphagia, unspecified; Z88.8 Allergy status to other drugs, medicaments and biological substances; Z91.013 Allergy to seafood; Z82.49 Family history of ischemic heart disease and other diseases of the circulatory system; Z95.0 Presence of cardiac pacemaker; Z79.899 Other long term (current) drug therapy
CPT/HCPCS: 36415; 70360; 74021; 74177; 80048; 80053; 82040; 83605; 83735; 83993; 84100; 84145; 84439; 84443; 85014; 85018; 85025; 85651; 86140; 86480; 86704; 86706; 87040; 87046; 87324; 87340; 87427; 87491; 87529; 87591; 88305; 89055; 93005; 96365; G0378; J0696; J2704; Q9967; J2920; J7030; J7040

== ENCOUNTER 2018-11-19 19:18 | Emergency (ER) | payer MEDICARE ==
[~2018-11-19] VITALS: Ht 167.6 cm; Wt 70.5 kg
[~2018-11-19 19:18] MED LIST changes: +AMLO10TA8 PO; +CHOL200074 PO; +CIPR500T3 PO; +MESA1.2T PO; +METR-90 PO; +MULT-516 PO; +PRED15SO23 PO; +SIME125T50 PO
--- NOTE | 2018-11-19 19:34 | NUR ---
PT ARRIVES IN ROOM AND INTO GOWN. PT ONTO CONTINUOUS PULSE OX AND INTERMITTENT BP CUFF. AWAKE/ALERT AND W/O ACUTE DISTRESS. CALL LIGHT IN REACH. SIDE RAILS UP X 2. 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 Addendum: 11/19/18 at 1939 by MANUEL PT REPORTS GI IS DR CUNN[place]AM
--- NOTE | 2018-11-19 20:12 | NUR ---
LAB AT THE BEDSIDE, PT CONTINUES TO REST IN BED W/O DSITRESS. VSS.
[2018-11-19 20:19] LABS: MEAN CORPUSCULAR HEMOGLOBIN 30.4 pg (27.5-34.5); MEAN CORPUSCULAR HGB CONC 32.8 g/dL (33.2-36.2); MEAN CORPUSCULAR VOLUME 92.9 fL (81-97); MEAN PLATELET VOLUME 6.4 fL (7.4-10.4); PLATELET COUNT 669 x10^3/uL (130-400); RED BLOOD COUNT 4.61 x10^6/uL (4.38-5.82); RED CELL DISTRIBUTION WIDTH 15.1 % (9.4-14.8)
[2018-11-19 20:32] LABS: ALANINE AMINOTRANSFERASE 32 U/L (12-78); ALBUMIN 2.6 g/dL (3.4-5.0); ANION GAP 7 mmol/L (5-15); CALCIUM 8.1 mg/dL (8.5-10.1); CHLORIDE 96 mmol/L (98-107); CREATININE 1.04 mg/dL (0.7-1.3)
[2018-11-19 20:36] LABS: ALKALINE PHOSPHATASE 63 U/L (45-117); BILIRUBIN,TOTAL 0.3 mg/dL (0.2-1.0); TROPONIN I < 0.015 ng/mL (0.000-0.045)
[2018-11-19 20:40] LABS: MD YES
[2018-11-19 21:01] VITALS: BP 147/88
[2018-11-19 21:26] LABS: BAND#(MANUAL) 0.86 x10^3/uL; BANDS%(MANUAL) 5 % (0-7); LYMPH#(MANUAL) 1.03 x10^3/uL (1-3.4); LYMPHS% (MANUAL) 6 % (22-44); METAMYELOCYTES# (MANUAL) 0.17 x10^3/uL (0-0); METAMYELOCYTES% (MANUAL) 1 % (0-1); MONOS#(MANUAL) 0.51 x10^3/uL (0.3-2.7); MONOS% (MANUAL) 3 % (2-9); SEG#(MANUAL) 14.54 x10^3/uL (1.8-6.8); SEGS% (MANUAL) 85 % (42-75)
[2018-11-19 21:27] LABS: <RBC MORPHOLOGY> NORMAL
[2018-11-19 21:28] LABS: <PLATELET ESTIMATE> INCREASED; SMALL PLATELETS 1+
--- NOTE | 2018-11-19 21:29 | NUR ---
ERMD AT BEDSIDE DISCUSSING POC W/ PT.
== END 2018-11-19 21:45 | disposition home or self-care (01) ==
LOC: ED 20:08
DX: R53.1 Weakness (principal); Z13.9 Encounter for screening, unspecified
CPT/HCPCS: 36415; 80053; 84443; 84484; 85025; 93005; 99284

== ENCOUNTER 2018-11-25 11:15 | Emergency (ER) | payer MEDICARE ==
[~2018-11-25] VITALS: Ht 167.6 cm; Wt 67.7 kg
[2018-11-25 13:00] VITALS: BP 117/73
== END 2018-11-25 14:45 | disposition home or self-care (01) ==
LOC: ED 14:30
DX: R53.1 Weakness (principal); E87.1 Hypo-osmolality and hyponatremia; D72.829 Elevated white blood cell count, unspecified; I10 Essential (primary) hypertension; N28.9 Disorder of kidney and ureter, unspecified; Z95.0 Presence of cardiac pacemaker; Z87.891 Personal history of nicotine dependence
CPT/HCPCS: 36415; 80048; 82040; 85025; 99283